=== PATIENT | female | born 1980 | race Caucasian/White ===

== ENCOUNTER → 2016-08-07 | Outpatient (CLI) | payer OTHER ==
[~2016-08-07] MED LIST: CIPR-255 PO; HMLI7525 SC; INSHI7030 SC; PRENTAB26 PO; VLT500 PO
== END | disposition home or self-care (01) ==
LOC: C.PAPS 10:36
PROVIDERS: ATTEND Obstetrics & Gynecology
DX: Z34.90 Encounter for supervision of normal pregnancy, unspecified, unspecified trimester (principal)

== ENCOUNTER → 2016-08-07 | Outpatient (CLI) | payer OTHER ==
[2016-08-07 16:45] LABS: BASO % 0.2 %; BASO ABS # 0.02 K/uL (0-0.2); COMPLETE YES; EOS % 2.7 %; HEMATOCRIT 35.3 % (37-47); IG% 0.2 %; LYMPH % 18.3 %; LYMPH ABS # 1.63 K/uL (1.2-3.4); MEAN CELL VOLUME 88.7 fL (80-100); MEAN CORPUSCULAR HEMOGLOBIN 30.2 pg (25-34); MEAN PLATELET VOLUME 11.5 fL (7.4-10.4); MONO % 5.2 %; NEUT % 73.4 %; PLATELET COUNT 189 K/uL (130-400); RED BLOOD COUNT 3.98 M/uL (4.2-5.4)
[2016-08-11 12:35] LABS: CHLAMYDIA TRACH RNA*** NOT DETECTED (NOT DETECTED); GC (NEIS GONORRHOEAE)RNA** NOT DETECTED (NOT DETECTED)
== END | disposition home or self-care (01) ==
LOC: C.LAB1850 15:06
PROVIDERS: ATTEND Obstetrics & Gynecology
DX: O16.9 Unspecified maternal hypertension, unspecified trimester (principal)

== ENCOUNTER → 2016-12-25 | Outpatient (CLI) | payer OTHER ==
[2016-12-25 16:24] LABS: URINE APPEARANCE TURBID (CLEAR); URINE BILIRUBIN NEG (NEG); URINE COLOR YELLOW; URINE EPITHELIAL CELL AUTO >30 /lpf (0-5); URINE NITRITE NEG (NEG); URINE PH 7.5 (4.5-7.5); UROBILINOGEN NEG (NEG)
[2016-12-25 16:25] LABS: MANUAL MICROSCOPIC REQUIRED? NO; REVIEW REQ? NO
== END | disposition home or self-care (01) ==
LOC: C.LABSPEC 15:19
PROVIDERS: ATTEND Obstetrics & Gynecology
DX: O24.414 Gestational diabetes mellitus in pregnancy, insulin controlled (principal); Z3A.00 Weeks of gestation of pregnancy not specified

== ENCOUNTER → 2016-12-25 | Outpatient (CLI) | payer OTHER | END | disposition home or self-care (01) | LOC: C.LAB1850 14:00 | PROVIDERS: ATTEND Obstetrics & Gynecology | DX: Z29.13 Encounter for prophylactic Rho(D) immune globulin (principal); O24.414 Gestational diabetes mellitus in pregnancy, insulin controlled; Z3A.00 Weeks of gestation of pregnancy not specified ==

== ENCOUNTER → 2017-01-21 | Outpatient (CLI) | payer OTHER ==
[2017-01-21 17:49] LABS: HEMATOCRIT 35.1 % (37-47)
== END | disposition home or self-care (01) ==
LOC: C.LAB1850 16:14
PROVIDERS: ATTEND Obstetrics & Gynecology
DX: O24.414 Gestational diabetes mellitus in pregnancy, insulin controlled (principal); Z3A.00 Weeks of gestation of pregnancy not specified

== ENCOUNTER → 2017-02-19 | Outpatient (CLI) | payer OTHER | END | disposition home or self-care (01) | LOC: C.LABSPEC 17:34 | PROVIDERS: ATTEND Obstetrics & Gynecology | DX: O09.93 Supervision of high risk pregnancy, unspecified, third trimester (principal); Z3A.00 Weeks of gestation of pregnancy not specified ==

== ENCOUNTER 2017-03-08 11:00 | Inpatient (IN) | payer OTHER ==
[~2017-03-08] VITALS: Ht 162.6 cm; Wt 78.0 kg
[2017-03-08] VITALS (10 sets, daily range): BP systolic 113–158; BP diastolic 78–96; PULSE 71–115; TEMP 36.8–37.2; O2SAT 98–100; Ht 162.6 cm; Wt 78.0 kg
[~2017-03-08 11:00] MED LIST changes: -HMLI7525 SC; -INSHI7030 SC; -VLT500 PO
[2017-03-08] MEDS ORDERED: VLT500 PO (11:04)
[2017-03-08] MEDS ORDERED: ONDANSETRON INJ 2 MG/ML 2 ML VIAL IV STA (11:14)
[2017-03-08] MEDS ORDERED: SODIUM CHLORIDE 0.9% 1000ML 1,000 ML IV STA (11:14)
[2017-03-08] MEDS ORDERED: MoRPHine SULFATE 4 MG/ML 1 ML CARP\\VIAL IV STA (11:14)
[2017-03-08] MEDS ORDERED: LIDOCAINE/EPINEPHRINE 1% 20 ML VIAL ONE (11:17)
[2017-03-08] MEDS ORDERED: LIDOCAINE HCL 1% 20 ML VIAL ONE (11:18)
[2017-03-08] MEDS ORDERED: OXYTOCIN INJ 10 UNITS/ML VIAL ONE (11:24)
[2017-03-08] MEDS ORDERED: KETAMINE HCL INJ 50 MG/ML 10 ML VIAL IV STA (11:35)
[2017-03-08] MEDS ORDERED: KETAMINE HCL INJ 50 MG/ML 10 ML VIAL ONE (11:38)
[2017-03-08 11:39] LABS: HEMATOCRIT 35.8 % (37-47); MEAN CELL VOLUME 91.3 fL (80-100); MEAN CORPUSCULAR HEMOGLOBIN 30.6 pg (25-34); MEAN CORPUSCULAR HGB CONC 33.5 g/dl (32-36); MEAN PLATELET VOLUME 11.3 fL (7.4-10.4); PLATELET COUNT 136 K/uL (130-400); RED BLOOD COUNT 3.92 M/uL (4.2-5.4); WHITE BLOOD COUNT 14.65 K/uL (4.8-10.8)
--- NOTE | 2017-03-08 11:42 | EMERGENCY ROOM VISIT NOTE ---
History Report prepared by Sebas: Zee Mann Under the Supervision of: Dr. Everton Mckeon M.D. First contact with patient: 11:10 Stated Complaint: CHILDBIRTH History of Present Illness The patient is a 37 year old white female with a past medical history of gestational diabetes who presents to the ED after giving to a child 1 hour ago at 1030. The patient is . She gave to a male child with 6 1 hour ago at home. Her placenta was not delivered. The reports that she went into labor 2 hours ago and her water broke just over 1 hour ago. Positive abdominal pain. Negative chest pain, SOB, fever, and chills. Source of History: patient Onset: 1 hour ago Position: other (global) Quality: other (childbirth) Timing: other (episode) Associated Symptoms: + abdominal pain, No fevers, No chills, No chest pain, No SOB Review of Systems See HPI for pertinent positives and negatives. A total of ten systems were reviewed and were otherwise negative. Past Medical & Surgical Medical Problems: (1) delivery at home (2) Gestational diabetes Family History No pertinent family history stated Social History Smoking Status: Never Smoker Alcohol Use: occasionally Drug Use: none Marital Status: Housing Status: lives with family Occupation Status: employed Current/Historical Medications Scheduled Insulin Human Isophan/Regular (Humulin 70/30), 45 SC HS Insulin Lispro 75/25 (Humalog Mix 75/25), 25 SC DAILYBD Multivit/Min/Iron/Fol Ac/Pren ( Vitamin), 1 TAB PO QAM Valacyclovir HCl (Valacyclovir HCl), 500 MG PO BID Allergies Coded Allergies: No Known Allergies (Verified , 03/08/17) Physical Exam Vital Signs Date Time Temp Pulse Resp B/P (MAP) Pulse Ox O2 Delivery O2 Flow Rate FiO2 03/08/17 12:20 101 18 138/96 98 Room Air 03/08/17 12:20 101 20 138/96 97 03/08/17 12:15 105 14 113/88 100 Nasal Cannula 2.0 03/08/17 12:15 106 21 113/88 98 03/08/17 12:11 115 21 158/87 99 Nasal Cannula 2.0 03/08/17 12:10 126 18 03/08/17 12:09 158/87 03/08/17 12:07 147/138 03/08/17 12:05 120 19 100 03/08/17 12:00 107 18 149/98 100 03/08/17 11:59 145/90 03/08/17 11:58 112 19 145/90 100 Nasal Cannula 2.0 03/08/17 11:55 99 18 149/108 98 03/08/17 11:50 94 16 150/97 100 03/08/17 11:45 93 18 141/87 03/08/17 11:44 147/96 03/08/17 11:37 69 03/08/17 11:35 37.2 71 16 148/90 100 Room Air 03/08/17 11:35 37.2 71 16 148/90 100 Room Air 03/08/17 11:12 36.7 81 20 137/83 99 Room Air Physical Exam GENERAL: Awake, alert, in severe pain HENT: Normocephalic, atraumatic. EYES: Normal conjunctiva. Sclera non-icteric. NECK: Supple. No nuchal rigidity. FROM. RESPIRATORY: CTAB, no rhonchi, wheezing, crackles CARDIAC: Tachycardic rate, regular rhythm, no MRG ABDOMEN: Soft, diffusely tender with guarding MSK: No chest wall TTP, no LE edema NEURO: GCS 15, CN 2-12 intact, moves all 4s on command SKIN: No rash or jaundice noted. : Dried blood over the legs, obvious umbilical cord present clamped extruding from the vagina. Medical Decision & Procedures Laboratory Results 03/08/17 11:29 Red Blood Count 3.92, Mean Corpuscular Volume 91.3, Mean Corpuscular Hemoglobin 30.6, Mean Corpuscular Hemoglobin Concent 33.5, Mean Platelet Volume 11.3, Neutrophils (%) (Auto) 89.8, Lymphocytes (%) (Auto) 6.3, Monocytes (%) (Auto) 3.1, Eosinophils (%) (Auto) 0.4, Basophils (%) (Auto) 0.1, Neutrophils # (Auto) 13.14, Lymphocytes # (Auto) 0.92, Monocytes # (Auto) 0.46, Eosinophils # (Auto) 0.06, Basophils # (Auto) 0.02 03/08/17 11:29 Test 03/08/17 11:29 White Blood Count 14.65 K/uL (4.8-10.8) Red Blood Count 3.92 M/uL (4.2-5.4) Hemoglobin 12.0 g/dL (12.0-16.0) Hematocrit 35.8 % (37-47) Mean Corpuscular Volume 91.3 fL (80-100) Mean Corpuscular Hemoglobin 30.6 pg (25-34) Mean Corpuscular Hemoglobin Concent 33.5 g/dl (32-36) Platelet Count 136 K/uL (130-400) Mean Platelet Volume 11.3 fL (7.4-10.4) Neutrophils (%) (Auto) 89.8 % Lymphocytes (%) (Auto) 6.3 % Monocytes (%) (Auto) 3.1 % Eosinophils (%) (Auto) 0.4 % Basophils (%) (Auto) 0.1 % Neutrophils # (Auto) 13.14 K/uL (1.4-6.5) Lymphocytes # (Auto) 0.92 K/uL (1.2-3.4) Monocytes # (Auto) 0.46 K/uL (0.11-0.59) Eosinophils # (Auto) 0.06 K/uL (0-0.5) Basophils # (Auto) 0.02 K/uL (0-0.2) RDW Standard Deviation 47.1 fL (36.4-46.3) RDW Coefficient of Variation 14.2 % (11.5-14.5) Immature Granulocyte % (Auto) 0.3 % Immature Granulocyte # (Auto) 0.05 K/uL (0.00-0.02) Prothrombin Time 10.2 SECONDS (9.0-12.0) Prothromb Time International Ratio 1.0 (0.9-1.1) Activated Partial Thromboplast Time 24.5 SECONDS (21.0-31.0) Partial Thromboplastin Ratio 0.9 Anion Gap 8.0 mmol/L (3-11) Estimated GFR () 127.0 Estimated GFR (Non- 109.6 BUN/Creatinine Ratio 12.5 (10-20) Calcium Level 7.6 mg/dl (8.5-10.1) Total Bilirubin 0.3 mg/dl (0.2-1) Direct Bilirubin < 0.1 mg/dl (0-0.2) Aspartate Amino Transf (AST/SGOT) 28 U/L (15-37) Alanine Aminotransferase (ALT/SGPT) 24 U/L (12-78) Alkaline Phosphatase 160 U/L (45-117) Total Protein 6.3 gm/dl (6.4-8.2) Albumin 2.8 gm/dl (3.4-5.0) Laboratory results reviewed by me Medications Administered Medications (Trade) Dose Ordered Sig/Bennett Route Start Time Stop Time Status Last Admin Dose Admin Morphine Sulfate (MoRPHine SULFATE INJ) 4 mg NOW STAT IV 03/08/17 11:14 03/08/17 11:17 DC 03/08/17 13:00 4 MG Ondansetron HCl (Zofran Inj) 4 mg NOW STAT IV 03/08/17 11:14 03/08/17 11:17 DC 03/08/17 11:17 4 MG Oxytocin (Pitocin Inj) 20 units STK-MED ONCE .ROUTE 03/08/17 11:24 03/08/17 11:25 DC 03/08/17 11:30 20 UNITS Ketamine HCl (Ketalar Steri-Vial Inj) 500 mg STK-MED ONCE .ROUTE 03/08/17 11:38 03/08/17 11:39 DC 03/08/17 12:58 30 MG Ketamine HCl (Ketalar Steri-Vial Inj) 20 mg NOW STAT IV 03/08/17 11:35 03/08/17 12:19 DC 03/08/17 12:57 20 MG Procedure Procedural Sedation Indication: hemorrhage. Total time: 30 minutes. Written consent was obtained after the risks and benefits were explained to the patient, including, but not limited to aspiration, allergic reaction, breathing difficulties, cardiac complications, vomiting, pain, event recall, bleeding, and /or infection. Pre-sedation examination and paperwork completed. The patient was on 100% oxygen via NRB prior to the procedure. Continous end tidal CO2 monitoring, pulse oximetry, and cardiac monitoring were utilized. Suction, airway equipment, medications, respiratory equipment, and appropriate personnel were prepared prior to the initiation of the procedure. A time out was taken. Sedation was achieved utilizing 120 mg of Ketamine. After I observed the patient had reached the appropriate level of sedation the main procedure was performed without complication. Sedation was discontinued and the monitoring continued. The patient recovered quickly from the effects of the medication without complication or adverse event. ED Course 1110: The patient was evaluated in room A1. A complete history and physical exam was performed. 1113: Dr. Austin of [employer] [facility] is at the patient's bedside. 1202: Emergent sedation for post hemorrhage. She had a Mallampati 4 ASA 1 and received Ketamine, see nursing note for total. Periurethral 2nd deg vaginal tare repaired bedside by Dr. Austin. Tolerated procedure well, no complications. 1201: Discussed the patient's case with Dr. Austin. He will evaluate the patient for further treatment and disposition. 1221: Upon reexamination, the patient was doing well. I discussed the test results and treatment plan with the patient. The patient will be evaluated for further management. Medical Decision Differential diagnosis includes pain, hemorrhage. The patient is a 37 year old white female with a past medical history of gestational diabetes who presents to the ED after giving to a child 1 hour ago at 1030. Patient presented and was tachycardic with significant abdominal pain. Of note patient did have dry blood over the legs and there is an umbilical cord procedure of the vagina. [employer] presented to the bedside for additional care. Patient was noted and the periurethral as well as grade 2 vaginal tear. There was concern for additional hemorrhage as well as bleeding from the tear. Patient was emergently sedated for further repair and management. Patient was given ketamine after appropriate safety protocol were addressed. Patient was sedated appropriately to wear the [employer] physician was able to perform the repair in [place] the bleeding. During this procedure the patient suffered occasions was not hypoxic and did not have any respiratory arrest. 3 minutes post-sedation patient was able to answer questions is following all commands and was not having any issues. Patient was admitted to the [facility] service for further management and care given her nature and acute blood loss. Medication Reconcilliation Current Medication List: was personally reviewed by me Blood Pressure Screening Patient's blood pressure: Elevated blood pressure Blood pressure disposition: Elevated BP felt to be situational Consults Time Called: 1108 Consulting Physician: Dr. Austin - [employer] Returned Call: [phone]: Dr. Austin of [employer] [facility] is at the patient's bedside. 1201: Discussed the patient's case with Dr. Austin. He will evaluate the patient for further treatment and disposition. Impression Primary Impression: Recent childbirth Additional Impressions: hemorrhage Tear of periurethral tissue with delivery Vaginal tear resulting from childbirth Critical Care I have personally spent greater than 45 minutes of critical care time in the direct management of this patient. This includes bedside care, interpretation of diagnostic studies, and testing, discussion with consultants, patient, and family members, and other required patient management activities. This 45 minutes is in excess of all separately billable procedures. Scribe Attestation The scribe's documentation has been prepared under my direction and personally reviewed by me in its entirety. I confirm that the note above accurately reflects all work, treatment, procedures, and medical decision making performed by me. Departure Information Dispostion Being Evaluated By Hospitalist Referrals Sugar Donis MD (PCP) Problem Qualifiers
[2017-03-08 11:53] LABS: PARTIAL THROMBOPLASTIN RATIO 0.9; PROTHROMBIN TIME (PATIENT) 10.2 SECONDS (9.0-12.0)
[2017-03-08 11:57] LABS: ALT/SGPT 24 U/L (12-78); AST/SGOT 28 U/L (15-37); BLOOD UREA NITROGEN 9 mg/dl (7-18); BUN/CREATININE RATIO 12.5 (10-20); CALCIUM 7.6 mg/dl (8.5-10.1); CARBON DIOXIDE 24 mmol/L (21-32); CHLORIDE 106 mmol/L (98-107); CREATININE 0.71 mg/dl (0.60-1.20); GLUCOSE 107 mg/dl (70-99); POTASSIUM 3.9 mmol/L (3.5-5.1); SODIUM 138 mmol/L (136-145)
[2017-03-08 11:59] LABS: ALKALINE PHOSPHATASE 160 U/L (45-117)
[2017-03-08 12:04] LABS: BASO % 0.1 %; BASO ABS # 0.02 K/uL (0-0.2); COMPLETE YES; EOS % 0.4 %; IG% 0.3 %; LYMPH % 6.3 %; LYMPH ABS # 0.92 K/uL (1.2-3.4); MONO % 3.1 %; NEUT % 89.8 %
[2017-03-08] MEDS ORDERED: LACTATED RINGER'S 1000ML 1,000 ML IV SCH (12:19)
[2017-03-08] MEDS ORDERED: ACETAMINOPHEN 325 MG TAB PO PRN (12:30)
[2017-03-08] MEDS ORDERED: LANOLIN OINT EXT PRN ×2 (12:30)
[2017-03-08] MEDS ORDERED: ACETAMINOPHEN/CODEINE 300/30MG TAB PO PRN ×2 (12:30)
[2017-03-08] MEDS ORDERED: DIPHTHERIA/TETANUS/PERTUSSIS 0.5 ML SYR/VIAL IM. ONE (12:30)
[2017-03-08] MEDS ORDERED: BENZOCAINE 20% AER SPR 82.5 GM CAN EXT PRN (12:30)
[2017-03-08] MEDS ORDERED: OXYCODONE/ACETAMINOPHEN 5-325 TAB PO PRN (12:30)
[2017-03-08] MEDS ORDERED: OXYTOCIN 30 UNITS/500ML NSS IV PRN (12:30)
[2017-03-08] MEDS ORDERED: SUPERCREAM 0.870 % 15GM JAR EXT PRN (12:30)
[2017-03-08] MEDS ORDERED: HYDROCORTISONE ACETATE 25 MG SUPP PR PRN (12:30)
--- NOTE | 2017-03-08 13:09 | DELIVERY SUMMARY ---
DATE OF OPERATION: 03/08/2017 Yaritza had called the service with contractions, was advised to come to the hospital. Unfortunately, her delivery occurred so quickly, she actually delivered at home. She presented to the Emergency Room with the baby and the placenta still inside of the uterus. At that time she was assessed and she was very uncomfortable. We were able to remove the placenta and IV Pitocin was started, however she had a periurethral and periclitoral tear and needed pain relief. I initially tried local anesthetic, however the patient was too uncomfortable, so Dr. Mckeon asked for sedation and patient was given both morphine and ketamine. This improved the patient's condition and I was able to inject local anesthetic into the area. Alvarez catheter was placed into her urethra as the periclitoral tear extended down to the top of urethral area. I was able to then close this with several [id number] 3-0 Vicryl sutures. This improved hemostasis, as there was significant bleeding from the area. She then had a second-degree tear, it was repaired with 3-0 Vicryl. At the end of the procedure, we estimated 400 mL of blood loss. Bleeding was improved, uterine tone was improved. I attest to the content of the Intraoperative Record and any orders documented therein. Any exception s are noted below.
[2017-03-08] MEDS ORDERED: HMLI7525 SC (15:07)
[2017-03-08] MEDS ORDERED: INSHI7030 SC (15:07)
[2017-03-08] MEDS: DOCUSATE SODIUM 100 MG CAP PO SCH (20:17)
[2017-03-09] MEDS: IBUPROFEN 600 MG TAB PO PRN ×3 (00:02→20:57)
[2017-03-09 01:17] VITALS: BP 111/78; PULSE 78; TEMP 36.9
[2017-03-09 04:45] VITALS: BP 109/58; PULSE 79; TEMP 36.7
--- NOTE | 2017-03-09 06:14 | OB/GYN Progress Note ---
SEN[facility]AL ATTORNEY Progress Note Date of Service Mar 09, 2017. Subjective conversation w/ patient, physical exam, chart review, lab review Ambulation: ambulating normally Voiding: no voiding problems Diet Tolerance: Regular Diet Lochia: Small Feeding Type: Breast Feeding Pain: 1-2/10 pain Review of Systems Constitutional: No fever Respiratory: No shortness of breath Cardiac: No chest pain Abdomen: No nausea, No vomiting Female : No dysuria Objective Vital Signs Date Time Temp Pulse Resp B/P (MAP) Pulse Ox O2 Delivery O2 Flow Rate FiO2 03/09/17 04:45 36.7 79 18 109/58 (75) Room Air 03/09/17 01:21 Room Air 03/09/17 01:17 36.9 78 18 111/78 (89) Room Air 03/08/17 20:00 36.9 88 18 120/80 (93) Room Air 03/08/17 17:45 100 Nasal Cannula 03/08/17 17:45 36.8 85 18 125/86 (99) 100 Nasal Cannula 03/08/17 13:58 83 18 141/87 100 Nasal Cannula 2.0 03/08/17 13:41 71 19 146/81 100 Nasal Cannula 2.0 03/08/17 12:55 102 18 126/50 98 03/08/17 12:50 92 17 126/80 97 03/08/17 12:45 94 16 128/77 97 03/08/17 12:40 92 12 124/77 97 03/08/17 12:35 97 19 127/78 98 Room Air 03/08/17 12:35 101 20 127/78 97 03/08/17 12:30 93 17 135/81 97 03/08/17 12:25 94 22 136/80 97 03/08/17 12:20 101 18 138/96 98 Room Air 03/08/17 12:20 101 20 138/96 97 03/08/17 12:15 105 14 113/88 100 Nasal Cannula 2.0 03/08/17 12:15 106 21 113/88 98 03/08/17 12:11 115 21 158/87 99 Nasal Cannula 2.0 03/08/17 12:10 126 18 03/08/17 12:09 158/87 03/08/17 12:07 147/138 03/08/17 12:05 120 19 100 03/08/17 12:00 107 18 149/98 100 03/08/17 11:59 145/90 03/08/17 11:58 112 19 145/90 100 Nasal Cannula 2.0 03/08/17 11:55 99 18 149/108 98 03/08/17 11:50 94 16 150/97 100 03/08/17 11:45 93 18 141/87 03/08/17 11:44 147/96 03/08/17 11:37 69 03/08/17 11:35 37.2 71 16 148/90 100 Room Air 03/08/17 11:35 37.2 71 16 148/90 100 Room Air 03/08/17 11:12 36.7 81 20 137/83 99 Room Air Physical Exam General Appearance: WELL-APPEARING Respiratory/Chest: lungs clear, normal breath sounds, no respiratory distress Cardiovascular: regular rate, rhythm Abdomen: normal bowel sounds, non tender, soft Fundus: Firm, Relation to Umbilicus (1 finger breaths below) Extremities: non-tender, no pedal edema Laboratory Results Last 24 Hours Test 03/08/17 11:29 03/08/17 12:26 03/09/17 04:44 White Blood Count 14.65 K/uL Red Blood Count 3.92 M/uL Hemoglobin 12.0 g/dL Hematocrit 35.8 % Mean Corpuscular Volume 91.3 fL Mean Corpuscular Hemoglobin 30.6 pg Mean Corpuscular Hemoglobin Concent 33.5 g/dl Platelet Count 136 K/uL Mean Platelet Volume 11.3 fL Neutrophils (%) (Auto) 89.8 % Lymphocytes (%) (Auto) 6.3 % Monocytes (%) (Auto) 3.1 % Eosinophils (%) (Auto) 0.4 % Basophils (%) (Auto) 0.1 % Neutrophils # (Auto) 13.14 K/uL Lymphocytes # (Auto) 0.92 K/uL Monocytes # (Auto) 0.46 K/uL Eosinophils # (Auto) 0.06 K/uL Basophils # (Auto) 0.02 K/uL RDW Standard Deviation 47.1 fL RDW Coefficient of Variation 14.2 % Immature Granulocyte % (Auto) 0.3 % Immature Granulocyte # (Auto) 0.05 K/uL Prothrombin Time 10.2 SECONDS Prothromb Time International Ratio 1.0 Activated Partial Thromboplast Time 24.5 SECONDS Partial Thromboplastin Ratio 0.9 Sodium Level 138 mmol/L Potassium Level 3.9 mmol/L Chloride Level 106 mmol/L Carbon Dioxide Level 24 mmol/L Anion Gap 8.0 mmol/L Blood Urea Nitrogen 9 mg/dl Creatinine 0.71 mg/dl Estimated GFR () 127.0 Estimated GFR (Non- 109.6 BUN/Creatinine Ratio 12.5 Random Glucose 107 mg/dl Calcium Level 7.6 mg/dl Total Bilirubin 0.3 mg/dl Direct Bilirubin < 0.1 mg/dl Aspartate Amino Transf (AST/SGOT) 28 U/L Alanine Aminotransferase (ALT/SGPT) 24 U/L Alkaline Phosphatase 160 U/L Total Protein 6.3 gm/dl Albumin 2.8 gm/dl Bedside Glucose 107 mg/dl Medications Current Inpatient Medications Medications (Trade) Dose Ordered Sig/Bennett Route Start Time Stop Time Status Last Admin Dose Admin Oxytocin (Pitocin IV) 30 units UD PRN IV 03/08/17 12:30 04/07/17 12:29 Benzocaine (Dermoplast Aero Spr) 1 appln PRN PRN EXT 03/08/17 12:30 04/07/17 12:29 03/08/17 20:17 1 APPLN Cocaine HCl (Supercream 0.870% Cr) BID PRN EXT 03/08/17 12:30 03/22/17 12:29 Hydrocortisone Acetate (Anusol Hc Supp) 25 mg BID PRN [place] 03/08/17 12:30 04/07/17 12:29 Lanolin (Lanolin Oint) PRN PRN EXT 03/08/17 12:30 04/07/17 12:29 Prenat Multivit/ Historical Site Guide/Iron/Folic Ac ( Vitamin Tab) 1 tab DAILY PO 03/09/17 08:00 04/08/17 08:59 Ibuprofen (Motrin Tab) 600 mg Q4H PRN PO 03/08/17 12:30 04/07/17 12:29 03/09/17 00:02 600 MG Acetaminophen (Tylenol Tab) 650 mg Q6H PRN PO 03/08/17 12:30 04/07/17 12:29 Acetaminophen/ Codeine Phosphate (Tylenol w/ Codeine #3 Tab) 1 tab Q4H PRN PO 03/08/17 12:30 04/07/17 12:29 03/09/17 00:02 1 TAB Acetaminophen/ Codeine Phosphate (Tylenol w/ Codeine #3 Tab) 2 tab Q4H PRN PO 03/08/17 12:30 04/07/17 12:29 Bisacodyl (Dulcolax Tab) 5 mg 20 PO 03/09/17 20:00 03/09/17 20:01 Bisacodyl (Dulcolax Supp) 10 mg DAILY PRN [place] 03/10/17 07:00 Docusate Sodium (coLACE CAP) 100 mg BID PO 03/08/17 20:00 04/07/17 20:59 03/08/17 20:17 100 MG Lactated Ringer's 1,000 ml @ 125 mls/hr Q8H IV 03/08/17 12:19 03/10/17 12:18 Assessment and Plan Post- Day Number: 1 Continue Routine Care: A/P: This is a 37 y/o female, , s/p normal vaginal delivery at home and presentation for repair of tears and removal of placenta. She is ambulating and clinically stable. Plan: - Vitals signs are reviewed and WNL (Tmax 36.9 ) - Last Hgb is 12 (03/08). This AM pending - Blood type A- , GBS pos, Rubella Immune - Routine care - Encourage ambulation, monitor and control pain with medication as needed, continue with regular diet as tolerated and monitor lochia - Stool softeners and sitz bath recommended - Encourage breast feeding and educate about breast feeding Resident Physician Supervision Note: I interviewed and examined the patient. Discussed with Dr. Candelaria and agree with findings and plan as documented in the note. Any exceptions or clarifications are listed here: [None] Documented By: Lorenzo Austin Resident Involvement: Resident Care Provided Care Provided: OB Delivery
[2017-03-09 07:22] VITALS: BP 112/72; PULSE 68; TEMP 37; O2SAT 98
[2017-03-09] MEDS: DOCUSATE SODIUM 100 MG CAP PO SCH ×2 (08:11→19:37)
[2017-03-09] MEDS: PRENATAL VITAMIN TAB PO SCH (08:11)
[2017-03-09 15:20] VITALS: BP 130/85; PULSE 83; TEMP 36.8; O2SAT 98
[2017-03-09] MEDS ORDERED: BISACODYL 5 MG TABEC PO SCH (20:00)
[2017-03-09 23:20] VITALS: BP 98/61; PULSE 84; TEMP 36.5
--- NOTE | 2017-03-10 02:07 | OB/GYN Progress Note ---
[facility] Progress Note Date of Service Mar 10, 2017. Subjective conversation w/ patient, physical exam, chart review, lab review Ambulation: ambulating normally Voiding: no voiding problems Diet Tolerance: Regular Diet Lochia: Small Feeding Type: Breast Feeding Pain: 08/12 pain Review of Systems Constitutional: No fever Respiratory: No shortness of breath Cardiac: No chest pain Abdomen: No nausea, No vomiting Female : No dysuria Objective Vital Signs Date Time Temp Pulse Resp B/P (MAP) Pulse Ox O2 Delivery O2 Flow Rate FiO2 03/09/17 23:20 36.5 84 18 98/61 (73) Room Air 03/09/17 23:20 Room Air 03/09/17 15:20 98 Room Air 03/09/17 15:20 36.8 83 20 130/85 (100) 98 Room Air 03/09/17 07:30 Room Air 03/09/17 07:22 37.0 68 20 112/72 (85) 98 Room Air 03/09/17 04:45 36.7 79 18 109/58 (75) Room Air Physical Exam General Appearance: WELL-APPEARING Respiratory/Chest: lungs clear, normal breath sounds, no respiratory distress Cardiovascular: regular rate, rhythm Abdomen: normal bowel sounds, non tender, soft Fundus: Firm, Relation to Umbilicus (1 FB) Extremities: non-tender, no pedal edema Laboratory Results Last 24 Hours Test 03/09/17 06:59 Hemoglobin 9.2 g/dL Hematocrit 28.0 % Medications Current Inpatient Medications Medications (Trade) Dose Ordered Sig/Bennett Route Start Time Stop Time Status Last Admin Dose Admin Oxytocin (Pitocin IV) 30 units UD PRN IV 03/08/17 12:30 04/07/17 12:29 Benzocaine (Dermoplast Aero Spr) 1 appln PRN PRN EXT 03/08/17 12:30 04/07/17 12:29 03/08/17 20:17 1 APPLN Cocaine HCl (Supercream 0.870% Cr) BID PRN EXT 03/08/17 12:30 03/22/17 12:29 Hydrocortisone Acetate (Anusol Hc Supp) 25 mg BID PRN [place] 03/08/17 12:30 04/07/17 12:29 Lanolin (Lanolin Oint) PRN PRN EXT 03/08/17 12:30 04/07/17 12:29 Prenat Multivit/ [place]/Iron/Folic Ac ( Vitamin Tab) 1 tab DAILY PO 03/09/17 08:00 04/08/17 08:59 03/09/17 08:11 1 TAB Ibuprofen (Motrin Tab) 600 mg Q4H PRN PO 03/08/17 12:30 04/07/17 12:29 03/09/17 20:57 600 MG Acetaminophen (Tylenol Tab) 650 mg Q6H PRN PO 03/08/17 12:30 04/07/17 12:29 Acetaminophen/ Codeine Phosphate (Tylenol w/ Codeine #3 Tab) 1 tab Q4H PRN PO 03/08/17 12:30 04/07/17 12:29 03/09/17 00:02 1 TAB Acetaminophen/ Codeine Phosphate (Tylenol w/ Codeine #3 Tab) 2 tab Q4H PRN PO 03/08/17 12:30 04/07/17 12:29 Bisacodyl (Dulcolax Supp) 10 mg DAILY PRN [place] 03/10/17 07:00 Docusate Sodium (coLACE CAP) 100 mg BID PO 03/08/17 20:00 04/07/17 20:59 03/09/17 19:37 100 MG Lactated Ringer's 1,000 ml @ 125 mls/hr Q8H IV 03/08/17 12:19 03/10/17 12:18 Ferrous Sulfate (Feosol Tab) 325 mg QAM PO 03/10/17 08:00 04/09/17 07:59 Assessment and Plan Post- Day Number: 2 Continue Routine Care: Resident Physician Supervision Note: I interviewed and examined the patient. Discussed with Dr. Candelaria and agree with findings and plan as documented in the note. Any exceptions or clarifications are listed here: [None] Documented By: Che Giron A/P: This is a 37 y/o female, , PPD#2 s/p normal vaginal delivery at home and presentation for removal of placenta/tear repairs. She is ambulating and clinically stable to discharge. - Vital signs are reviewed and WNL (Tmax 37) - Last Hgb 8.7 (03/10) - Blood type A-, GBS pos, Rubella Immune - No signs of depression. - Routine care - Discussed resting, feeding, pain control, mastitis, control, follow up in 6 weeks and reasons to call sooner, if necessary. - Continue with pain medication as needed, and continue vitamins. - Encourage breast feeding and educate about breast feeding - Patient understands and keen for home. - Plan to discharge home Resident Involvement: Resident Care Provided Care Provided: OB Delivery
--- NOTE | 2017-03-10 02:10 | Discharge Instructions ---
Discharge Instructions Date of Service Mar 10, 2017. Admission Reason for Admission: Delivery At Home Discharge Discharge Diagnosis / Problem: after delivery Discharge Goals Goal(s): Routine recovery after delivery Medications Continue Dispensed Medications: supercream, dermaplast, tucks, lansinoh Activity Recommendations Activity Limitations: per Instructions/Follow-up section . Instructions / Follow-Up Instructions / Follow-Up ACTIVITY RECOMMENDATIONS: * Gradual return to full activity over the next 2-3 weeks. * No lifting - nothing heavier than baby over the next 2-3 weeks. * Do not engage in vigorous exercise, sexual activity or sports until cleared by your physician. * Do not drive or operate any motorized equipment until cleared by your physician. * You may shower/bathe daily. MEDICATIONS: For discomfort or pain, you may use Acetaminophen (Tylenol), Ibuprofen (Advil), or Naproxen (Aleve) following the package directions. For constipation you may use Colace following the package directions. BREAST CARE: If you are not breast feeding: * Wear a supportive bra 24 hours a day for one to two weeks. * Avoid stimulating your breasts and nipples as much as possible during the first few weeks after delivery. * When taking a shower, have the warm water hit your back, not breasts. * When your breasts feel full, apply ice packs. Usually three to four times a day helps ease the discomfort. * Take a mild pain medication (Tylenol / Motrin) when you are uncomfortable. If breast feeding: * Use breast milk to lubricate nipples. Lansinoh cream may be used for sore nipples. You do not need to remove cream prior to breast feeding. If using a different brand of cream, check the label for directions regarding removal of cream prior to nursing. * Wear a supportive bra. * If having problems with breasts or breast feeding, call a home energy consultant supervisor or your health care provider. EPISIOTOMY CARE: After delivery, if you have an episiotomy (stitches), the following steps will ease discomfort and aid healing. * For the first 24 hours after delivery, place ice packs next to your episiotomy to help reduce swelling. * After the first 24 hour-period, sitz baths, either portable or in the tub, are suggested. A shower with a shower arm sprayed over the episiotomy may be comforting. * Suzy care should be done after each voiding and bowel movement. Squirt warm water from a plastic bottle over the perineum (region of the body between the anus and urinary opening) and pat dry. * Use Dermoplast to ease discomfort. Shake container. [place] directly over the episiotomy. Place a Tucks on a clean sanitary pad next to your episiotomy. SPECIAL CARE INSTRUCTIONS: When you are discharged from the hospital, it is important for you to follow the instructions listed below: * During the first week at home, you should be able to care for yourself and your baby. In addition, the usual light household activities are encouraged. * Limit your activities to the way you feel. Do not try to clean the house or move furniture. Be sensible. * If you actively engage in sports and have done so up until the time of your delivery, you may resume these activities as soon as you feel able. This may take up to one month or even longer. Use good judgment. * Continue to take your vitamins for at least six weeks after the of your baby. * Your diet need not be limited unless you were on a special diet before your delivery. Breast-feeding mothers need around 2500 calories per day and at least 64-80 ounces of fluid per day (8 to 10 glasses). * You should eat foods from the four major food groups. Crash diets or fad diets are to be avoided. Eating lean meats, fresh fruits and vegetables, low-fat dairy products, high fiber foods and a regular exercise program, will help you get back to your pre- weight without putting your health at risk. * Constipation is sometimes a problem after delivery. Take a mild laxative as needed. If breast feeding, Milk of Magnesia is acceptable to use. You may use a suppository or Fleets enema if no episiotomy. * A daily shower or tub bath is suggested. Be sure to thoroughly and gently dry the perineum. * A bloody vaginal discharge will usually continue until around four weeks post . A small amount of bleeding may continue for as long as six weeks. Vaginal discharge changes from the bright red bleeding after delivery to pink then brownish and finally yellowish-pink before becoming white and disappearing. * Bleeding may increase with activity. Your first period may come in 4-8 weeks. If you are breast feeding, your period may be delayed even longer. * [place] (sex) can begin whenever both you and your partner feel comfortable and do not have any form of genital infection. It is recommended that you wait at least six weeks for internal and external healing to occur. If you have questions, please talk to your health care practitioner. A condom should be used to prevent infection and . * Foreplay, gentle intercourse and lubrication is very important the first several times to prevent pain. A water-based lubricant such as K-Y jelly or Astroglide may be used. * If you have RH negative blood and your baby is RH positive, you will receive RHOGAM by injection prior to discharge. The nurse will give you a card to keep with you that has the date and place that you received RHOGAM after delivery. * During your care, you had a Rubella screen done to check for the presence of rubella antibodies in your blood. If your test was negative, you will receive a Rubella vaccine prior to discharge. This vaccine may cause a fever, soreness at the injection site and flu-like symptoms. If these symptoms persist, notify your health care practitioner. is not advised for one month after a Rubella vaccine. * Verbalizes understanding of car seat law as reviewed with patient nursing. * Car Seat hand-out given and reviewed with patient by nursing. * Shaken baby information reviewed with patient by nursing. Call you doctor if: * Heavy bleeding (saturating several pads an hour) or passing clots the size of your fist. * A fever >101 degrees F (38.3 degrees C) on two occasions four hours apart and /or chills. * Unusual pain in the pelvic or vaginal areas. * "Baby Blues" lasting longer than two weeks. If you have any questions or concerns, call your health care practitioner at . FOLLOW UP VISIT: * Please call the office at to schedule a 6 week examination. It is important you keep this appointment. It is important for you to make arrangements for either yearly or twice yearly check-ups thereafter. Current Hospital Diet Patient's current hospital diet: Regular OB Diet Discharge Diet Recommended Diet: Regular Diet Pending Studies Studies pending at discharge: no Medical Emergencies . Who to Call and When: Medical Emergencies: If at any time you feel your situation is an emergency, please call 911 immediately. . Non-Emergent Contact Non-Emergency issues call your: Certified Phlebotomy Technician . . "Provider Documentation" section prepared by Rosa Candelaria. . VTE Core Measure Inpt VTE Proph given/why not?: Treatment not indicated
[2017-03-10 06:15] LABS: HEMATOCRIT 26.6 % (37-47); MEAN CELL VOLUME 92.4 fL (80-100); MEAN CORPUSCULAR HEMOGLOBIN 30.2 pg (25-34); MEAN CORPUSCULAR HGB CONC 32.7 g/dl (32-36); MEAN PLATELET VOLUME 10.2 fL (7.4-10.4); PLATELET COUNT 135 K/uL (130-400); RED BLOOD COUNT 2.88 M/uL (4.2-5.4); WHITE BLOOD COUNT 8.54 K/uL (4.8-10.8)
[2017-03-10] MEDS ORDERED: BISACODYL 10 MG SUPP PR PRN (07:00)
[2017-03-10 07:28] VITALS: BP 135/73; PULSE 106; TEMP 36.7; O2SAT 95
[2017-03-10] MEDS ORDERED: FERROUS SULFATE 325 MG TAB PO SCH (08:00)
[2017-03-10] MEDS: PRENATAL VITAMIN TAB PO SCH (08:18)
[2017-03-10] MEDS: DOCUSATE SODIUM 100 MG CAP PO SCH (08:19)
[2017-03-10 11:03] VITALS: BP_DIAS 73; PULSE 106; TEMP 36.7
== END 2017-03-10 13:07 | disposition home or self-care (01) | DRG 769 ==
LOC: EDBD 11:00 → EDUNIT# 11:00 → C.ED 11:03 → C.LD 12:20 → C.OBG 17:20
PROVIDERS: ADMIT Obstetrics & Gynecology; ATTEND Obstetrics & Gynecology
PROC: 0KQM0ZZ Repair Perineum Muscle, Open Approach (ICD-10-PCS; principal; 2017-03-08)
PROC: 10D17ZZ Extraction of Products of Conception, Retained, Via Natural or Artificial Opening (ICD-10-PCS; principal; 2017-03-08)
DX: O73.0 Retained placenta without hemorrhage (principal); O99.835 Other infection carrier state complicating the puerperium; O70.1 Second degree perineal laceration during delivery

== ENCOUNTER → 2017-06-12 | Outpatient (CLI) | payer OTHER ==
[~2017-06-12] MED LIST changes: -CIPR-255 PO
--- NOTE | 2017-06-12 11:58 | DIAGNOSTIC IMAGING REPORT ---
RENAL ULTRASOUND HISTORY: R10.9 Flank pain R/O STONES [ KIDNEY , URETER OR BLADDER ] AND H COMPARISON: Abdomen and pelvis CT 01/01/2016. FINDINGS: Right kidney: 11.0 cm. No hydronephrosis. Normal corticomedullary differentiation and cortical thickness. Left kidney: 11.3 cm. No hydronephrosis. Normal corticomedullary differentiation and cortical thickness. Bladder: No bladder wall thickening. The bilateral ureteral jets were identified. There is an 8 mm stone either within or just beyond the right ureterovesical junction. IMPRESSION: There is an 8 mm stone either within or just beyond the right ureterovesical junction and located within the bladder. This is nonobstructing as there is no right-sided hydronephrosis and the bilateral ureteral jets are identified. Electronically signed by: Irving Mccord M.D. 06/12/2017 11:56 AM Dictated Date/Time: 06/12/2017 11:54 AM
== END | disposition home or self-care (01) ==
LOC: C.ULTRBC 11:22
PROVIDERS: ATTEND Internal Medicine
DX: R10.9 Unspecified abdominal pain (principal)

== ENCOUNTER → 2017-06-22 | Outpatient (CLI) | payer OTHER ==
--- NOTE | 2017-06-22 12:29 | DIAGNOSTIC IMAGING REPORT ---
KUB HISTORY: N20.0 Nephrolithiasis [id number] COMPARISON: KUB 01/22/2016. FINDINGS: The bowel gas pattern is unremarkable. There are no dilated loops of small bowel to suggest an obstruction. There is a 2 mm stone within the lower pole of the left kidney and a 2 mm stone within the upper pole of the right kidney. No ureteral calculi identified. Mild levoscoliosis of the thoracolumbar junction. The distal right ureteral stone/bladder stone seen in the prior study is not identified. However, this could be obscured by overlying bowel. Stable punctate density overlying the right side of the sacrum which is demonstrated to be a bone island prior CT examination. No pneumoperitoneum or pneumatosis. IMPRESSION: 1. Bilateral nephrolithiasis. 2. No ureteral or bladder calculi identified. Electronically signed by: Irving Mccord M.D. 06/22/2017 12:27 PM Dictated Date/Time: 06/22/2017 12:25 PM
== END | disposition home or self-care (01) ==
LOC: C.RADBC 10:56
PROVIDERS: ATTEND Urology
DX: N20.0 Calculus of kidney (principal)

== ENCOUNTER → 2018-02-17 | Outpatient (CLI) | payer OTHER ==
--- NOTE | 2018-02-17 17:08 | DIAGNOSTIC IMAGING REPORT ---
L SHOULDER MIN 2 VIEWS ROUTINE CLINICAL HISTORY: M25.512 Left shoulder [id number] pain COMPARISON: None. DISCUSSION: The bones and joint spaces appear intact. There is no evidence of fracture, dislocation or bony disease. There is no evidence for soft tissue swelling. IMPRESSION: Negative study. The above report was generated using voice recognition software. It may contain grammatical, syntax or spelling errors. Electronically signed by: Pranav Marquez M.D. 02/17/2018 5:07 PM Dictated Date/Time: 02/17/2018 5:07 PM
--- NOTE | 2018-02-17 17:09 | DIAGNOSTIC IMAGING REPORT ---
CERVICAL SPINE 2 OR 3 VIEWS CLINICAL HISTORY: Cervical strain. COMPARISON STUDY: No previous studies for comparison. FINDINGS: Note is made of reversal of the normal cervical lordosis. There is slight retrolisthesis of C5 on C6 with mild disc space narrowing and osteophytosis at this level. No fracture or suspicious lesion is identified. Prevertebral soft tissues are unremarkable. Facet joints are intact. IMPRESSION: 1. No cervical spine fracture. 2. Mild disc space narrowing, osteophytosis and slight retrolisthesis at C5-C6. 3. Reversal of the normal cervical lordosis. Electronically signed by: Tello Carvalho M.D. 02/17/2018 5:08 PM Dictated Date/Time: 02/17/2018 5:07 PM
== END | disposition home or self-care (01) ==
LOC: C.RAD1850 15:17
PROVIDERS: ATTEND Nurse Practitioner Family
DX: M25.512 Pain in left shoulder (principal); S16.1XXA Strain of muscle, fascia and tendon at neck level, initial encounter; X58.XXXA Exposure to other specified factors, initial encounter

== ENCOUNTER 2019-10-02 15:27 | Inpatient (IN) ==
[2019-10-02] MEDS ORDERED: PENICILLIN G POTASSIUM 6 MU in DEXTROSE 5% 250 ML IV STA (15:41)
[2019-10-02] MEDS: LACTATED RINGER'S 1,000 ML IV PRN ×2 (15:56→17:16)
[2019-10-02 16:01] LABS: Hemoglobin 11.8 g/dL (12.0-16.0); Mean Corpuscular Hemoglobin 30.8 pg (25-34); Mean Corpuscular Volume 91.4 fL (80-100); Mean Platelet Volume 11.3 fL (7.4-10.4); Platelet Count 155 K/uL (130-400); RDW Coefficient of Variation 14.3 % (11.5-14.5); RDW Standard Deviation 47.9 fL (36.4-46.3); Red Blood Count 3.83 M/uL (4.2-5.4)
[2019-10-02 16:05] LABS: Mean Corpuscular Hgb Conc 33.7 g/dL (32-36)
[2019-10-02] MEDS ORDERED: PENICILLIN G POTASSIUM 3 MU in DEXTROSE 5% 100 ML IV PRN (16:10)
--- NOTE | 2019-10-02 16:17 | Anesthesiology Consultation ---
Date of Service October 02, 2019 Assessment & Plan (1) Encounter for pre-operative examination: Chart Review Chart Review: Patient NOT seen in Pre Admission Testing and Acceptable Risk for Labor Epidural Consults Requested none ASA ASA3 Proposed Anesthesia Anesthesia Type: Labor Epidural Risk / Benefits Reviewed With: PT / POA / Parent / Guardian, Accepts Plan and Informed Consent Obtained History Height/Weight Weight: 83.915 kg Allergies Allergy/AdvReac Type Severity Reaction Status Date / Time No Known Drug Allergies Allergy Verified 09/30/19 13:21 Animal dander - Cats Allergy Unknown Uncoded 09/30/19 13:21 Animal dander - Dogs Allergy Unknown Uncoded 09/30/19 13:21 Dust Mite Allergy Unknown Uncoded 09/30/19 13:21 Medications Home Medications Medication Instructions Recorded Confirmed Last Taken epinephrine 0.3 mg/0.3 mL IM .INJECT 0.3ML INTRAMU #1 ea 03/11/19 09/30/19 Unknown injection, auto-injector prenat.vits,mago,qim-udfm-umpap PO DAILY 03/11/19 09/30/19 Unknown acetone (urine) test #50 ea 04/18/19 09/30/19 Unknown blood sugar diagnostic #120 ea 04/18/19 09/30/19 Unknown pen needle, diabetic 32 gauge x #50 ea 04/25/19 09/30/19 Unknown 5/32" insulin syringe-needle U-100 0.3 #40 ea 05/02/19 09/30/19 Unknown mL 31 gauge x 5/16" insulin NPH isoph U-100 human 100 See Rx Instructions SQ .COMPLEX 07/18/19 09/30/19 Unknown unit/mL subcutaneous suspension #20 ml insulin syringe-needle U-100 1 mL #40 ea 07/18/19 09/30/19 Unknown 31 gauge x 5/16" insulin aspart U-100 100 unit/mL See Rx Instructions SQ .COMPLEX 08/01/19 09/30/19 Unknown subcutaneous solution #20 ml breast pump #1 ea 09/08/19 09/30/19 Unknown valacyclovir 500 mg tablet 500 mg PO DAILY #30 tab 09/08/19 09/30/19 Unknown Active Medications Generic Name Dose Route Start Last Admin Trade Name Freq PRN Reason Stop Dose Admin Lactated Ringer's 1,000 mls @ 125 mls/hr 10/02/19 15:41 10/02/19 16:47 Lr IV 10/04/19 15:40 125 mls/hr .Q8H PRN Infusion L&D Protocol Protocol NPO Date Last Intake of Fluids: 10/02/19 Time Last Intake of Fluids: 16:45 Date Last Intake of Solids: 10/02/19 Time Last Intake of Solids: 14:00 Past Medical History Medical History Chronic sinusitis Diet controlled gestational diabetes mellitus (GDM), antepartum History of acute cystitis History of headache History of kidney stones History of varicella Missed Exercise / Class Metabolic Activity III < 4 Walking/Shop/Light housework Past Family History Family History Mother Family history of diabetes mellitus Diabetes Hypertension Kidney stones Dyslipidemia Aunt Diabetes Grandmother (Maternal) Diabetes Father Hypertension Dyslipidemia Grandmother Ovarian cancer Grandfather Prostate cancer Sister No problems noted. Sister No problems noted. Daughter No problems noted. Son No problems noted. Other No family history of bleeding disorder Denies family history of Breast cancer Colorectal cancer Uterine cancer Past Surgical History Surgical History History of colonoscopy History of cystoscopy History of foot surgery LT History of knee surgery BL History of lithotripsy History of wisdom tooth extraction Nausea and vomiting after administration of anesthetic agent Past Anesthesia History No Hx of Anesthesia Complications History of PONV History of PONV Social History Smoking Status: Never smoker Hx Alcohol Use: Yes Alcohol type: wine alcohol intake frequency: a few times a month Hx Substance Use: No substance use type: does not use Review of Systems Patient denies history of abnormal bleeding or bleeding disorder. Patient denies active use of anticoagulants other than low dose aspirin. Patient denies numbness, tingling or weakness in lower extremities. Physical Exam Vital Signs Last Vital Signs Temp 36.9 C 10/02/19 15:35 Pulse 92 H 10/02/19 16:13 Resp 20 10/02/19 15:35 BP 117/89 10/02/19 15:34 Pulse Ox 99 10/02/19 16:13 Constitutional not obese (Gravid) ENMT Mouth: no TMJ abnormality and oral opening not small Thyromental Distance: > or= 3.5 Finger Breadths Mallampati Class: III Neck normal visual inspection; neck extension not limited Respiratory normal respiratory effort Auscultation: lungs clear to auscultation bilaterally Cardiovascular Rate/Rhythm: regular rate and regular rhythm Heart Sounds: no murmur Neurologic moves all extremities Psychiatric Orientation: alert and oriented x 3 Testing Laboratory Results 10/02/19 15:49 10/02/19 16:08 POC Glucose 112 H
[2019-10-02] MEDS ORDERED: fentaNYL citrate 100 MCG/2 ML VIAL ONE (16:48)
[2019-10-02] MEDS ORDERED: BUPIVACAINE 0.25% 30 ML VIAL ONE (16:48)
[2019-10-02] MEDS ORDERED: ePHEDrine sulfate 50 MG/ML AMP ONE (16:48)
[2019-10-02] MEDS ORDERED: fentaNYL 2MCG/ML ROPIV 1.25MG/ML 100 ML BAG EPI ONE (16:48)
[2019-10-02] MEDS ORDERED: NALBUPHINE HCL INJ 10 MG/ML AMP IV PRN (16:58)
[2019-10-02] MEDS ORDERED: ONDANSETRON INJ 2 MG/ML 2 ML VIAL IV PRN (16:58)
[2019-10-02] MEDS ORDERED: ePHEDrine sulfate 50 MG/ML AMP IV PRN (16:58)
[2019-10-02] MEDS ORDERED: NALOXONE HCL 0.4 MG/1 ML VIAL/CARP IV PRN (16:58)
[2019-10-02] MEDS ORDERED: fentaNYL 2MCG/ML ROPIV 1.25MG/ML 100 ML BAG EPI PRN (16:58)
[2019-10-02] MEDS ORDERED: DiphenhydrAMINE HCL 50 MG/ML VIAL IV PRN (16:58)
[2019-10-02] MEDS ORDERED: NALOXONE HCL 1 MG in SODIUM CHLORIDE 0.9% 1000ML 1,000 ML IV PRN (16:58)
[2019-10-02] MEDS: OXYTOCIN 30 UNITS/500 ML BAG IV PRN ×2 (21:59→22:39)
[2019-10-02] MEDS ORDERED: OXYTOCIN 30 UNITS/500 ML BAG IV PRN (22:13)
[2019-10-02] MEDS ORDERED: DIPHTHERIA/TETANUS/PERTUSSIS 0.5 ML SYR/VIAL IM ONE (22:13)
[2019-10-02] MEDS ORDERED: HYDROCORTISONE ACETATE 25 MG SUPP PR PRN (22:13)
[2019-10-02] MEDS ORDERED: bisacodyL 10 MG SUPP PR PRN (22:13)
[2019-10-02] MEDS ORDERED: BENZOCAINE 20% AER SPR 82.5 GM CAN EXT PRN (22:13)
[2019-10-02] MEDS ORDERED: SUPERCREAM 0.870% 15 GM JAR EXT PRN (22:13)
--- NOTE | 2019-10-02 23:05 | Delivery Summary ---
DATE OF OPERATION: 10/02/2019 PROCEDURE: Normal spontaneous vaginal delivery with first degree laceration repair. SURGEON: Scar Miller MD PREOPERATIVE DIAGNOSES: 1. Single intrauterine at term. 2. Insulin-controlled gestational diabetes. 3. Group B Streptococcus positive. 4. Advanced maternal age. 5. History of herpes simplex virus. POSTOPERATIVE DIAGNOSES: 1. Single intrauterine at term. 2. Insulin-controlled gestational diabetes. 3. Group B Streptococcus positive. 4. Advanced maternal age. 5. History of herpes simplex virus. 6. Status post delivery. ESTIMATED BLOOD LOSS: 300 mL. DRAINS: None. FLUIDS: Continuous lactated ringer. URINE OUTPUT: Not measured. COMPLICATIONS: None. FINDINGS: Viable male infant with weight pending, Apgars 8 and 9 at 1 and 5 minutes respectively. INDICATION/HOSPITAL COURSE: The patient was admitted to labor and delivery for labor at 6 cm dilation. Upon admission, she received an epidural for anesthesia and progressed in labor without further augmentation. She did receive 2 doses of penicillin for GBS positive status and after the completion of the second dose, she underwent spontaneous rupture of membranes for clear fluid. The patient was found to be complete-complete +1 station at that time. Shortly thereafter, we began to push and pushed for approximately 20 minutes to achieve delivery. DESCRIPTION OF PROCEDURE: The patient progressed to 10 cm dilated, 100% effaced, +1 station, pushed over intact perineum with epidural anesthesia and delivered a viable male infant, weight and Apgars as above. Head of the delivered in KE position, rest into right transverse. No nuchal cord was noted. Body and shoulders quickly followed. was noted to be vigorous shortly after delivery and a 1-minute delayed cord clamping was initiated. The cord was then double clamped and cut and remained on maternal abdomen and was continued to be vigorous. The cord blood was then obtained. Attention was then turned to delivery of the placenta which was delivered intact, 3-vessel cord with gentle cord traction. On inspection of the perineum, vagina, and cervix, there was noted to be a very small first-degree laceration which was repaired with several interrupted 3-0 Vicryl. Needle, sponge and instrument counts were correct at the completion of the case. Both mother and stable in the immediate post-delivery. I attest to the content of the Intraoperative Record and any orders documented therein. Any exception s are noted below.
[2019-10-03] MEDS: IBUPROFEN 600 MG TAB PO PRN ×5 (00:52→22:58)
--- NOTE | 2019-10-03 01:11 | Anesthesia Procedure Note ---
Date of Service October 03, 2019 Anesthesia Post Epidural Note Vital Signs Vital Signs: Temp Pulse Resp BP Pulse Ox 36.6 C 86 18 130/69 95 10/02/19 19:21 10/03/19 00:19 10/02/19 21:30 10/03/19 00:19 10/02/19 22:04 Pain Intensity Right Abdomen: Pain Intensity: 2 Notes Mental Status: alert / awake / arousable Nausea / Vomiting: adequately controlled Pain: adequately controlled Airway Patency, RR, SpO2: stable & adequate BP & HR: stable & adequate Hydration State: stable & adequate Neuraxial Anesthesia: was administered and sensory block is resolving Anesthetic Complications: no major complications apparent and Pt Satisfied with anesthetic care Epidural: Removed without complications and With tip intact
--- NOTE | 2019-10-03 05:58 | Obstetrical Progress Note ---
Date of Service <Jovan Murcia MD - Last Filed: 10/03/19 06:26> October 03, 2019 Assessment & Plan <Jovan Murcia MD - Last Filed: 10/03/19 06:26> (1) : PPD#1 - continue routine care - encourage ambulation, and oral intake - after discharge will have follow-up in 6 weeks Subjective <Jovan Murcia MD - Last Filed: 10/03/19 06:26> Ms. Ortiz is a 39 y/o female ; PPD #1 following spontaneous vaginal delivery; doing well this morning; having minimal abdominal cramping/pain; voiding well; tolerating meals overnight; and able to ambulate some; some persistent spotting with intermittent improvement this morning. Review of Systems Constitutional: denies fever; chills; sweats; headache Respiratory: denies shortness of breath, difficulty breathing Cardiac: denies chest pain; palpitations; chest pressure Breast: denies breast pain : denies dysuria Physical Exam <Jovan Murcia MD - Last Filed: 10/03/19 06:26> General: alert; oriented; no acute distress Cardiac: RRR; no m/g/r Respiratory: CTAB a/p; no wheezes/rales/rhonchi; no increased work of breathing; symmetrical chest rise; no respiratory distress Abdomen: soft; NT/ND; bowel sounds positive Uterus: uterine fundus firm; palpable 3cm below umbilicus Lower extrem: no lower extremity edema or swelling; no deep calf pain; Thiago's sign negative b/l Results & Data <Jovan Murcia MD - Last Filed: 10/03/19 06:26> Vital Signs (Past 12 Hours) Vital Signs Temp Pulse Pulse Resp BP BP Pulse Ox 10/03/19 04:30 36.7 C 89 18 130/75 10/03/19 00:45 36.9 C 84 20 136/96 10/03/19 00:19 86 130/69 10/03/19 00:04 87 139/73 10/02/19 23:50 93 H 131/80 10/02/19 23:35 85 143/81 H 10/02/19 23:19 88 142/71 H 10/02/19 23:05 90 149/79 H 10/02/19 22:49 76 134/72 10/02/19 22:34 86 133/80 10/02/19 22:19 90 131/67 10/02/19 22:15 106 H 132/68 10/02/19 22:05 96 H 118/58 L 10/02/19 22:04 96 H 95 10/02/19 21:59 99 H 93 10/02/19 21:56 156 H 93 10/02/19 21:54 119 H 83 L 10/02/19 21:51 142 H 134/106 H 10/02/19 21:50 118 H 92 10/02/19 21:49 114 H 95 10/02/19 21:44 135 H 96 10/02/19 21:38 131 H 96 10/02/19 21:35 100 H 132/94 85 L 10/02/19 21:33 96 H 98 10/02/19 21:30 18 10/02/19 21:29 99 H 89 L 10/02/19 21:28 98 H 95 10/02/19 21:23 101 H 95 10/02/19 21:22 110 H 93 10/02/19 21:20 113 H 139/88 10/02/19 21:18 99 H 98 10/02/19 21:13 95 H 96 10/02/19 21:08 91 H 96 10/02/19 21:05 96 H 142/78 H 10/02/19 21:03 92 H 97 10/02/19 21:00 18 10/02/19 20:58 94 H 98 10/02/19 20:53 84 98 10/02/19 20:51 86 134/78 10/02/19 20:48 81 97 10/02/19 20:43 90 97 10/02/19 20:38 84 99 10/02/19 20:34 85 141/84 H 10/02/19 20:33 85 98 10/02/19 20:30 18 10/02/19 20:29 103 H 92 10/02/19 20:28 100 H 100 10/02/19 20:23 80 98 10/02/19 20:22 95 H 141/80 H 10/02/19 20:18 89 98 10/02/19 20:13 88 98 10/02/19 20:08 79 99 10/02/19 20:06 83 137/77 10/02/19 20:03 81 100 10/02/19 20:00 18 10/02/19 19:58 85 98 10/02/19 19:53 78 99 10/02/19 19:49 76 136/83 10/02/19 19:48 84 98 10/02/19 19:43 77 98 10/02/19 19:38 80 98 10/02/19 19:34 88 143/92 H 10/02/19 19:33 90 99 10/02/19 19:30 18 10/02/19 19:28 80 98 10/02/19 19:23 92 H 98 10/02/19 19:21 36.6 C 18 10/02/19 19:20 86 134/81 10/02/19 19:18 85 98 10/02/19 19:13 82 99 10/02/19 19:08 85 99 10/02/19 19:04 81 133/103 H 10/02/19 19:03 84 98 10/02/19 18:58 94 H 97 10/02/19 18:53 81 97 10/02/19 18:51 83 133/78 10/02/19 18:48 77 97 10/02/19 18:43 92 H 97 10/02/19 18:38 87 96 10/02/19 18:36 87 132/80 10/02/19 18:33 87 96 10/02/19 18:28 85 96 10/02/19 18:23 89 96 10/02/19 18:19 82 131/78 10/02/19 18:18 84 97 10/02/19 18:13 93 H 97 10/02/19 18:08 84 97 10/02/19 18:06 81 131/79 10/02/19 18:03 93 H 96 10/02/19 18:00 18 Laboratory Results 10/03/19 10/02/19 10/02/19 Range/Units 05:56 21:04 20:07 WBC (4.8-10.8) K/uL RBC (4.2-5.4) M/uL Hgb 11.1 L (12.0-16.0) g/dL Hct 33.3 L (37-47) % MCV (80-100) fL MCH (25-34) pg MCHC (32-36) g/dL RDW Std Deviation (36.4-46.3) fL RDW Coeff of Reese (11.5-14.5) % Plt Count (130-400) K/uL MPV (7.4-10.4) fL POC Glucose 95 79 (70-99) mg/dl 10/02/19 10/02/19 10/02/19 Range/Units 18:53 17:56 16:08 WBC (4.8-10.8) K/uL RBC (4.2-5.4) M/uL Hgb (12.0-16.0) g/dL Hct (37-47) % MCV (80-100) fL MCH (25-34) pg MCHC (32-36) g/dL RDW Std Deviation (36.4-46.3) fL RDW Coeff of Reese (11.5-14.5) % Plt Count (130-400) K/uL MPV (7.4-10.4) fL POC Glucose 80 94 112 H (70-99) mg/dl 10/02/19 Range/Units 15:49 WBC 7.40 (4.8-10.8) K/uL RBC 3.83 L (4.2-5.4) M/uL Hgb 11.8 L (12.0-16.0) g/dL Hct 35.0 L (37-47) % MCV 91.4 (80-100) fL MCH 30.8 (25-34) pg MCHC 33.7 (32-36) g/dL RDW Std Deviation 47.9 H (36.4-46.3) fL RDW Coeff of Reese 14.3 (11.5-14.5) % Plt Count 155 (130-400) K/uL MPV 11.3 H (7.4-10.4) fL POC Glucose (70-99) mg/dl Medications Administered Current Inpatient Medications Acetaminophen (Tylenol) 650 mg PO Q6H PRN PRN Reason: Pain/SAM/Fever Stop: 11/01/19 22:12 Benzocaine (Dermoplast Pain Relieving [place]) 1 appln EXT PRN PRN PRN Reason: Perineal Discomfort Stop: 11/01/19 22:12 Last Admin: 10/03/19 00:52 Dose: 82.5 appln Documented by: Bisacodyl (Dulcolax) 5 mg PO 1999 [facility] Stop: 10/03/19 20:01 Bisacodyl (Dulcolax) 10 mg [place] DAILY PRN PRN Reason: No BM on 2nd post- day Stop: 11/01/19 22:12 Cocaine HCl (Supercream 0.870%) 1 gm EXT BID PRN PRN Reason: Hemorrhoidal Inflammation Stop: 10/16/19 22:12 Last Admin: 10/03/19 00:52 Dose: 1 appl Documented by: Docusate Sodium (Colace) 100 mg PO DAILY@08,21 [facility] Stop: 11/02/19 07:59 Hydrocortisone (Anusol Hc) 25 mg [place] BID PRN PRN Reason: Hemorrhoidal Inflammation Stop: 11/01/19 22:12 Lactated Ringer's (Lr) 1,000 mls @ 125 mls/hr IV .Q8H PRN; Protocol PRN Reason: L&D Protocol Stop: 10/04/19 15:40 Last Infusion: 10/03/19 00:50 Dose: Infused Documented by: Oxytocin (Pitocin) 30 units in 500 mls @ 333.333 mls/hr IV .Q1H30M PRN; Protocol PRN Reason: Bleeding Control Stop: 11/01/19 15:40 Last Titration: 10/03/19 00:50 Dose: Infused Documented by: Penicillin G Potassium 3 mu/ (Dextrose) 106 mls @ 100 mls/hr IV Q4H PRN PRN Reason: Give until delivery Stop: 10/12/19 16:09 Last Infusion: 10/02/19 21:59 Dose: Infused Documented by: Oxytocin (Pitocin) 30 units in 500 mls @ 333.333 mls/hr IV .Q1H30M PRN; Protocol PRN Reason: Bleeding Control Ibuprofen (Motrin) 600 mg PO Q4H PRN PRN Reason: Pain/SAM/Cramping/Fever Stop: 11/01/19 22:12 Last Admin: 10/03/19 04:27 Dose: 600 mg Documented by: Prenat Multivit/[place]/Iron/Folic Ac ( Vitamin) 1 tab PO DAILY@08 [facility] Stop: 11/02/19 07:59 <Scar Miller MD - Last Filed: 10/03/19 07:54> Co-Signing Physician Notes Patient seen and evaluated and agree with the above findings and plan. Routine care Resident Activity Tracking <Jovan Murcia MD - Last Filed: 10/03/19 06:26> Resident Involvement: Resident Care Provided Care Provided: OB Delivery
[2019-10-03 06:19] LABS: Hematocrit (blood only) 33.3 % (37-47); Hemoglobin 11.1 g/dL (12.0-16.0)
[2019-10-03] MEDS: PRENATAL VITAMIN 1 TAB PO SCH (08:14)
[2019-10-03] MEDS: DOCUSATE SODIUM 100 MG CAP PO SCH ×2 (08:14→20:01)
[2019-10-03] MEDS ORDERED: bisacodyL 5 MG TABEC PO SCH (20:00)
[2019-10-03] MEDS: ACETAMINOPHEN 325 MG TAB PO PRN (20:01)
[2019-10-04] MEDS: ACETAMINOPHEN 325 MG TAB PO PRN (02:11)
--- NOTE | 2019-10-04 06:01 | Obstetrical Progress Note ---
Date of Service <Jovan Murcia MD - Last Filed: 10/04/19 06:21> October 04, 2019 Assessment & Plan <Jovan Murcia MD - Last Filed: 10/04/19 06:21> (1) : PPD#2 - continue routine care - encourage ambulation, and oral intake - after discharge will have follow-up in 6 weeks Subjective <Jovan Murcia MD - Last Filed: 10/04/19 06:21> Ms. Ortiz is a 39 y/o female ; PPD #2 following spontaneous vaginal delivery; doing well this morning; having minimal abdominal cramping/pain; voiding well; tolerating meals overnight; and able to ambulate some; some persistent spotting with intermittent improvement this morning. Review of Systems Constitutional: denies fever; chills; sweats; headache Respiratory: denies shortness of breath, difficulty breathing Cardiac: denies chest pain; palpitations; chest pressure Breast: denies breast pain : denies dysuria Physical Exam <Jovan Murcia MD - Last Filed: 10/04/19 06:21> General: alert; oriented; no acute distress Cardiac: RRR; no m/g/r Respiratory: CTAB a/p; no wheezes/rales/rhonchi; no increased work of breathing; symmetrical chest rise; no respiratory distress Abdomen: soft; NT/ND; bowel sounds positive Uterus: uterine fundus firm; palpable 3cm below umbilicus Lower extrem: no lower extremity edema or swelling; no deep calf pain; Thiago's sign negative b/l Results & Data <Jovan Murcia MD - Last Filed: 10/04/19 06:21> Vital Signs (Past 12 Hours) Vital Signs Temp Pulse Resp BP 10/03/19 23:05 36.7 C 75 16 117/78 10/03/19 19:35 37 C 81 16 139/81 Laboratory Results 10/03/19 Range/Units 05:56 Hgb 11.1 L (12.0-16.0) g/dL Hct 33.3 L (37-47) % Medications Administered Current Inpatient Medications Acetaminophen (Tylenol) 650 mg PO Q6H PRN PRN Reason: Pain/SAM/Fever Stop: 11/01/19 22:12 Last Admin: 10/04/19 02:11 Dose: 650 mg Documented by: Benzocaine (Dermoplast Pain Relieving [place]) 1 appln EXT PRN PRN PRN Reason: Perineal Discomfort Stop: 11/01/19 22:12 Last Admin: 10/03/19 00:52 Dose: 82.5 appln Documented by: Bisacodyl (Dulcolax) 10 mg [place] DAILY PRN PRN Reason: No BM on 2nd post- day Stop: 11/01/19 22:12 Cocaine HCl (Supercream 0.870%) 1 gm EXT BID PRN PRN Reason: Hemorrhoidal Inflammation Stop: 10/16/19 22:12 Last Admin: 10/03/19 00:52 Dose: 1 appl Documented by: Docusate Sodium (Colace) 100 mg PO DAILY@08,21 [facility] Stop: 11/02/19 07:59 Last Admin: 10/03/19 20:01 Dose: 100 mg Documented by: Hydrocortisone (Anusol Hc) 25 mg [place] BID PRN PRN Reason: Hemorrhoidal Inflammation Stop: 11/01/19 22:12 Lactated Ringer's (Lr) 1,000 mls @ 125 mls/hr IV .Q8H PRN; Protocol PRN Reason: L&D Protocol Stop: 10/04/19 15:40 Last Infusion: 10/03/19 00:50 Dose: Infused Documented by: Oxytocin (Pitocin) 30 units in 500 mls @ 333.333 mls/hr IV .Q1H30M PRN; Protocol PRN Reason: Bleeding Control Stop: 11/01/19 15:40 Last Titration: 10/03/19 00:50 Dose: Infused Documented by: Penicillin G Potassium 3 mu/ (Dextrose) 106 mls @ 100 mls/hr IV Q4H PRN PRN Reason: Give until delivery Stop: 10/12/19 16:09 Last Infusion: 10/02/19 21:59 Dose: Infused Documented by: Oxytocin (Pitocin) 30 units in 500 mls @ 333.333 mls/hr IV .Q1H30M PRN; Protocol PRN Reason: Bleeding Control Ibuprofen (Motrin) 600 mg PO Q4H PRN PRN Reason: Pain/SAM/Cramping/Fever Stop: 11/01/19 22:12 Last Admin: 10/03/19 22:58 Dose: 600 mg Documented by: Prenat Multivit/Chiropractic Neurologist/Iron/Folic Ac ( Vitamin) 1 tab PO DAILY@08 [facility] Stop: 11/02/19 07:59 Last Admin: 10/03/19 08:14 Dose: 1 tab Documented by: <Grupo Austin MD, FACOG - Last Filed: 10/04/19 07:27> Co-Signing Physician Notes Resident Physician Supervision Note: I interviewed and examined the patient. Discussed with Dr. Murcia and agree with findings and plan as documented in the note. Any exceptions or clarifications are listed here: [None] Documented By: Grupo Austin MD, FACOG Resident Activity Tracking <Jovan Murcia MD - Last Filed: 10/04/19 06:21> Resident Involvement: Resident Care Provided Care Provided: OB Delivery
[2019-10-04] MEDS: PRENATAL VITAMIN 1 TAB PO SCH (07:33)
[2019-10-04] MEDS: DOCUSATE SODIUM 100 MG CAP PO SCH (07:33)
[2019-10-04] MEDS: IBUPROFEN 600 MG TAB PO PRN ×2 (07:33→12:51)
== END 2019-10-04 13:15 | disposition home or self-care (01) | DRG 807 ==
LOC: OPB 15:27 → 4S1 15:34 → 4S2 10-03 00:50